=== PATIENT | male | born 1970 | race Caucasian/White ===

== ENCOUNTER 2022-12-28 07:56 | Outpatient (OUT) | payer MEDICAID, SELFPAY ==
--- NOTE | 2022-12-28 08:30 | CT_ITS ---
[address] [address] Patient Name: TOMY COPELAND MRN: [id number] date: 1970 Sex: M Assigned Patient Location: CT Current Patient Location: CT Accession/Order Number: [id number] Exam Date: 12/28/2022 08:26 Report Date: 12/28/2022 15:07 At the request of: MARGOT AGUILAR Procedure: CT chest wo con EXAMINATION: CT chest wo con HISTORY: Multiple Lung Nodules R91.8 , follow-up COMPARISON: CT lung cancer screening 03/02/2022 TECHNIQUE: Multi-planar CT images were obtained without and/or with IV contrast as indicated by examination type. Axial, Coronal, and Sagittal images. Dose reduction techniques were achieved by using automated exposure control and/or adjustment of mA and/or kV according to patient size and/or use of iterative reconstruction technique. FINDINGS: LUNGS: Stable 10 mm rounded circumscribed nodule within the posterior lateral right lower lobe level of hilum. Stable 3 mm nodule within anterior base of right upper lobe adjacent the minor fissure and stable 4 mm nodule within right middle lobe. PLEURA: No mass, effusion, or pneumothorax. VASCULATURE: No abnormality. CARLOS: No mass or adenopathy. MEDIASTINUM: No mass or adenopathy. CARDIAC: Atherosclerotic coronary artery disease. AORTA: No aneurysm or dissection. CHEST WALL: No mass or axillary adenopathy. BONES: No bone lesion or fracture. LIMITED ABDOMEN: 3.5 cm left adrenal mass with large fatty component; most suggestive of a benign adenoma. Limited images of the upper abdomen. OTHER: Negative. CT/CT chest wo con IMPRESSION: 1. Stable nonspecific, but not overtly suspicious, nodules within right lung compared to 10 months ago. Consider follow-up imaging in one year to document continued stability. 2. Limited evaluation of the upper abdomen, but grossly stable left adrenal mass suspected to represent a benign adenoma. Electronically authenticated by: MINDY THOMAS Date: 12/28/2022 15:07
== END 2022-12-28 07:57 | disposition home or self-care (01) ==
LOC: CT 07:59
PROVIDERS: PCP Nurse Practitioner Primary Care; Visit Provider Nurse Practitioner Primary Care
DX: R91.8 Other nonspecific abnormal finding of lung field (principal)
CPT/HCPCS: 71250

== ENCOUNTER 2023-01-25 14:39 | Outpatient (OUT) | payer MEDICAID, SELFPAY | END 2023-01-25 14:40 | disposition home or self-care (01) | LOC: PST 14:39 | PROVIDERS: Visit Provider Surgery | DX: Z01.818 Encounter for other preprocedural examination (principal); Z12.11 Encounter for screening for malignant neoplasm of colon ==

== ENCOUNTER 2023-01-28 07:10 | Day surgery (SDC) | payer MEDICAID, SELFPAY ==
[2023-01-28 07:39] VITALS: BP 146/82; PULSE 59; RESP 20; TEMP 36.6; O2SAT 99; BMI 40.2
[2023-01-28 07:47] LABS: Glucometer 194 mg/dL (74-106)
[2023-01-28] MEDS: LACTATED RINGER'S SOLUTION 1,000 ML 50 ML IV (08:28)
[2023-01-28 08:58] VITALS: BP 99/45; PULSE 56; RESP 16; TEMP 36.4; O2SAT 95
--- NOTE | 2023-01-28 09:05 | PM.GSPRC ---
Date of procedure: 01/28/23 Indications for Procedure: This patient is a 52-year-old male who presents for screening colonoscopy. The risks benefits options and potential complications of the procedure were discussed in detail with the patient and they agreed to proceed and consent was signed. Pre-op diagnosis: colon cancer screening Post-op diagnosis: other (normal exam) Procedure: colonoscopy Anesthesia: MAC Surgeon: Rajendra Porter Procedure Summary: The patient was brought to the endoscopy suite and placed in the left lateral decubitus position.? Under MAC the fiberoptic colonoscope was introduced into the rectum. This was gradually advanced through the colon to the cecum. The cecal landmarks were identified. The bowel prep was extremely poor significantly limiting visualization. Gradual withdrawal of the colonoscope was then undertaken. No vascular polypoid or mucosal lesions were noted throughout the entire length of the colon. The anal rectal canal was unremarkable. The colon was decompressed. Digital rectal exam was unremarkable. The procedure was ended and the patient was transferred to the recovery area in stable condition. Recommended follow-up colonoscopy in ten years. Estimated blood loss (mL): 0 Specimens: none Complications: No
[2023-01-28 09:15] VITALS: BP 131/65; PULSE 59; RESP 18; O2SAT 59
[2023-01-28 09:30] VITALS: BP 134/80; PULSE 58; RESP 16; O2SAT 98
[2023-01-28 10:00] VITALS: BP 152/78; PULSE 58; RESP 18; O2SAT 99
== END 2023-01-28 10:50 | disposition home or self-care (01) ==
PROVIDERS: Anesthesiology; Visit Provider Surgery
PROC: (CPT 812; principal; 2023-01-28 08:30)
DX: Z12.11 Encounter for screening for malignant neoplasm of colon (principal); Z79.01 Long term (current) use of anticoagulants; Z79.84 Long term (current) use of oral hypoglycemic drugs; F41.9 Anxiety disorder, unspecified; Z86.73 Personal history of transient ischemic attack (TIA), and cerebral infarction without residual deficits; G47.33 Obstructive sleep apnea (adult) (pediatric); E78.2 Mixed hyperlipidemia; E11.8 Type 2 diabetes mellitus with unspecified complications; I10 Essential (primary) hypertension; K21.9 Gastro-esophageal reflux disease without esophagitis; F17.210 Nicotine dependence, cigarettes, uncomplicated
CPT/HCPCS: 45378; 36415; 36416; 82948; J2704